=== PATIENT | female | born 1960 ===

== ENCOUNTER 2019-12-19 14:29 | Inpatient (IN) | payer OTHER ==
[2019-12-19] VITALS (9 sets, daily range): BP systolic 80–132; BP diastolic 56–69; Ht 172.7 cm; Wt 57.5 kg
[~2019-12-19] VITALS: Ht 172.7 cm; Wt 57.5 kg
--- NOTE | 2019-12-19 14:55 | NUR ---
IV 20 GA LEFT AC
[2019-12-19 17:35] LABS: BASOPHILS 0.1 % (0-2); EOSINOPHILS 1.2 % (0-7); HEMATOCRIT 41.4 % (36.0-48.0); HEMOGLOBIN 13.7 g/dL (12-16); IMMATURE GRANULOCYTES 0.1 % (0-5); LYMPHOCYTES 19.4 % (15-50); MCH 29.7 pg (26.0-34.0); MCHC 33.1 g/dL (31.0-37.0); MCV 89.8 fL (80.0-100.0); MEAN PLATELET VOLUME 11.6 fL (7.4-10.4); MONOCYTES 6.8 % (2-11); NEUTROPHILS 72.4 % (40-80); PLATELET COUNT 253 10x3/uL (130-400); RBC 4.61 10x6/uL (4.00-5.40); RDW 13.2 % (11.5-14.5); WBC 8.2 10x3/uL (4.8-10.8)
--- NOTE | 2019-12-19 17:37 | NUR ---
16 FR CANTU CATH PLACED. YELLOW URINE RETURN IN TUBING AND BAG. PT TOLERATED WELL.
--- NOTE | 2019-12-19 17:38 | NUR ---
CALLED PHARMACY FOR ANCEF ORDER
[2019-12-19 17:42] LABS: ANION GAP 10.9 mmol/L (8-16); CALCIUM 8.6 mg/dL (8.5-10.1); CARBON DIOXIDE 25.9 mmol/L (21.0-32.0); CREATININE - SERUM 0.9 mg/dL (0.6-1.3); POTASSIUM - SERUM 3.8 mmol/L (3.5-5.1)
[2019-12-19 17:47] LABS: APTT 26.3 SECONDS (22.8-39.4); INR 0.98 (0.85-1.17)
[2019-12-19 17:48] LABS: ALBUMIN 3.8 g/dL (3.4-5.0); BILIRUBIN - TOTAL 0.32 mg/dL (0.2-1.3); PROTEIN - SERUM 7.1 g/dL (6.4-8.2)
[2019-12-19 18:02] LABS: BILIRUBIN NEGATIVE (NEGATIVE); KETONE NEGATIVE (NEGATIVE); NITRITE NEGATIVE (NEGATIVE); UROBILINOGEN NORMAL mg/dL (< 2)
--- NOTE | 2019-12-19 18:42 | NUR ---
ANCEF UNAVAILABLE PT WENT TO SURGERY
[2019-12-19] MEDS ORDERED: PROZAC40 MG PO (21:16)
[2019-12-19] MEDS ORDERED: VALIUM5 MG PO (21:17)
[2019-12-19] MEDS ORDERED: TOPAMAX50 MG PO (21:18)
[2019-12-19] MEDS ORDERED: PEPCID AC20 MG PO (21:19)
[2019-12-20] VITALS (12 sets, daily range): BP systolic 82–102; BP diastolic 37–69
--- NOTE | 2019-12-20 06:45 | NUR ---
REMOVED CANTU. TIP INTACT.
--- NOTE | 2019-12-20 07:09 | NUR ---
RECEIVED BEDSIDE REPORT. PT LAYING IN BED A&O X4. PIV TO LEFT AC, PATENT AND INFUSING, NO REDNESS OR SWELLING. SCD ON RLE, PLEXI ON L FOOT. ISP AT BEDSIDE. DRSG TO LEFT HIP, C/D/I. EDUCATED PT ON CL AND NEEDS, VERBALIZED UNDERSTANDING. BED LOW, ALARM ON, CL IN REACH. WILL CONTINUE TO MONITOR.
[2019-12-20 07:28] LABS: MCH 28.8 pg (26.0-34.0); MCHC 31.9 g/dL (31.0-37.0); MCV 90.1 fL (80.0-100.0); MEAN PLATELET VOLUME 11.7 fL (7.4-10.4); RDW 13.2 % (11.5-14.5); WBC 7.2 10x3/uL (4.8-10.8)
--- NOTE | 2019-12-20 07:40 | OP ---
PATIENT NAME: KAYODE GUTIERREZ MEDICAL RECORD: [id number] :58 LOCATION:D. D.1211 ADMISSION DATE:12/19/19 SURGEON: JOHN ZAPIEN DO DATE OF OPERATION: 12/19/2019 PROCEDURE PERFORMED: Left total hip arthroplasty. PREOPERATIVE DIAGNOSIS: Left hip femoral neck fracture, displaced. POSTOPERATIVE DIAGNOSIS: Left hip femoral neck fracture, displaced. INDICATIONS: Ms. Gutierrez is a 59-year-old female who fell today onto her left hip while helping her daughter move. She had immediate pain, but did not think it was that bad. She was brought to the ER for x-rays and seen to have a displaced femoral neck fracture. Informed her of the options including percutaneous pinning, the high likelihood that neck would due to displacement and that we needed to do a total hip and be done and she could get up and walk right away. She would like that option better. She was aware of the risks including infection, bleeding, damage to the femoral nerve, the lateral thigh cutaneous nerve, further fracture of the femur, failure of implants, leg length discrepancy, blood clots, and even , and she signed the consent. SURGEON: John Zapien DO DESCRIPTION OF PROCEDURE: The patient was taken to the operative suite, laid in supine position, given general anesthetic, given a gram of TXA and a gram of Ancef preoperatively. She was sedated and intubated. She was then moved over to the [place] table and positioned. The left hip was then prepped and draped in sterile fashion. Timeout was performed. Everyone was in agreement with the correct site, side, patient, and procedure. I then began by making an incision over the tensor fasciae latae muscle, then careful dissection down to the fascia. Took the fascia anteriorly, muscle belly posteriorly, opened the rectus interval, the rectus medially, tensor fasciae latae laterally, opened up the space there and encountered the ascending branch of lateral femoral circumflex artery and tied it off and then coagulated with the Aquamantys and then cut it. I then opened the capsule, exposed the capsule, put Hohmann on either side, I then opened it up and tagged the capsule stitch, put the Hohmann around the neck of the femur and cut. I then removed the fracture site of the femoral neck and then the femoral head in 2 separate pieces due to the fracture being comminuted. I then put the Charnley and removed the labrum and the pulvinar and began reaming, reamed up to a 50, impacted in a 50 cup. It fit very well and checked it with a Cristian and it was well seated. I then impacted in the liner. I then exposed the femur and used a canal finder and Carlotz cutter and then broached up to an 11, I reduced that and needed to go to a 12 and also a longer neck, then put in a 12, +3 seemed to fit well and had equal lengths to the right on the x-ray. I then put in the 12 stem and same +3 neck on a dual mobility bearing and it appeared to be long on x-ray. Then removed that and put in a standard and impacted on and reduced and it was equal lengths to the right side of the lesser trochanters. I then irrigated thoroughly. She could not have the Betadine solution due to her BETADINE ALLERGY. Irrigated thoroughly with saline and put in Louie and vancomycin and tobramycin powder. I then closed the tensor fasciae latae fascia with #1 Vicryl in a [id number] in a running locking stitch and the skin with 2-0 Vicryl in inverted interrupted fashion, 4-0 Monocryl running on the skin and then Prineo glue placed on the skin. She was OPERATIVE REPORT [id number] KAYODE GUTIERREZ dressed with Telfa and Tegaderm. Given another gram of TXA. Awakened and taken to recovery in stable condition. Blood loss approximately 300 mL. COMPLICATIONS: None. TRANSINT:[id number] Voice Confirmation ID: [id number] DOCUMENT ID: [id number] JOHN ZAPIEN DO at 0740 CC: [id number] DICTATION DATE: 12/19/192023 GIS SCIENTIST: 12/20/19 0317 [facility] IN [facility] [address] [id number]
[2019-12-20 07:42] LABS: HEMOGLOBIN 9.9 g/dL (12-16); RBC 3.44 10x6/uL (4.00-5.40)
--- NOTE | 2019-12-20 09:44 | NUR ---
PT C/O PAIN 11/15, PROVIDED PAIN MEDS PER ORDER. PT TOLERATED WELL. BED LOW, CL IN REACH.
--- NOTE | 2019-12-20 12:30 | NUR ---
ASSISTED PT FROM CHAIR BACK TO BED, PT C/O BEING TO TIRED TO BE IN CHAIR. BED LOW, CL IN REACH.
--- NOTE | 2019-12-20 17:15 | NUR ---
PT C/O PAIN 11/15, PROVIDED MEDS PER ORDER. PT TOLERATED WELL. BED LOW, CL IN REACH.
--- NOTE | 2019-12-20 17:52 | NUR ---
ASSITED PT TO BR, VOIDED 350ML CLR YELLOW URINE, TOLERATED WELL. BED LOW, RAILS X2, CL IN REACH.
--- NOTE | 2019-12-20 18:09 | MORECARE ---
CASE MANAGEMENT DISCHARGE SUMMARY PATIENT: KAYODE MORALES UNIT: [id number] ADM DATE: 12/19/19 AGE: 59 : 58 SEX: F ROOM/BED: D.1211 AUTHOR: ERIKA PRUITT PHYSICIAN: REFERRING PHYSICIAN: YSABEL SONG MD DATE OF SERVICE: 12/20/19 Discharge Plan Patient Name: KAYODE MORALES Facility: [facility]:[place] : 1960 Planned Disposition: Outpatient PT\OT Anticipated Discharge Date: 12/22/19 Discharge Date: Expected LOS: 3 Initial Reviewer: [email or web address] Initial Review Date: 12/19/2019 Generated: 12/20/19 7:08 pm Comments DCP- Discharge Planning Updated by [email or web address]: Elizabeth Siu on 12/20/19 4:[address] CM will need to set up OP Therapy with [facility], in [place] upon DC and also a walker will be needed prior to DC. CM met with patient for DC planning. Patient is in agreement to same. Patient lives with her daughter, Kerrie Kaminski ([phone]), in her home, in [place]. There are two steps entering the home. PCP: Dr. Bianca Browne [place]. Pharmacy: [facility]. DME: None. CM discussed HHS, OP Therapy, SNF, Rehab. Patient states she will go to [facility] in [place], she has been a client of theirs in the past. Patient's daughter will drive her home upon DC. Patient voices no other needs at this time. CM will follow and assist PRN. Patient Name: KAYODE MORALES Page 33336 at 1809 All edits/amendments must be made on the electronic document DICTATION DATE: 12/20/191808 BELT MEASURER: STACIA 12/20/191808 RPT#: [id number] DC DATE: STATUS: ADM IN [facility] [address] [place] [address] END OF REPORT
--- NOTE | 2019-12-20 18:16 | MORECARE ---
CASE MANAGEMENT DISCHARGE SUMMARY PATIENT: KAYODE MORALES UNIT: [id number] ADM DATE: 12/19/19 AGE: 59 : 58 SEX: F ROOM/BED: D.1211 AUTHOR: SONAL,DOC PHYSICIAN: REFERRING PHYSICIAN: YSABEL SONG MD DATE OF SERVICE: 12/20/19 Discharge Plan Patient Name: KAYODE MORALES Facility: [facility]:[place] : 1960 Planned Disposition: Outpatient PT\OT Anticipated Discharge Date: 12/22/19 Discharge Date: Expected LOS: 3 Initial Reviewer: [email or web address] Initial Review Date: 12/19/2019 Generated: 12/20/19 7:15 pm Comments DCP- Discharge Planning Updated by [email or web address]: Elizabeth Siu on 12/20/19 4:[address] CM will need to set up OP Therapy with [facility], in [place] upon DC and also a walker will be needed prior to DC. CM met with patient for DC planning. Patient is in agreement to same. Patient lives with her daughter, Kerrie Kaminski ([phone]), in her home, in [place]. There are two steps entering the home. PCP: Agustina Emmanuel. Pharmacy: [facility]. DME: None. CM discussed HHS, OP Therapy, SNF, Rehab. Patient states she will go to [facility] in [place], she has been a client of theirs in the past. Patient's daughter will drive her home upon DC. Patient voices no other needs at this time. CM will follow and assist PRN. DCPIA - Discharge Planning Initial Assessment Updated by [email or web address]: Elizabeth Siu on 12/20/19 6:11 pm * Is the patient Alert and Oriented? Yes * How many steps to enter\exit or inside your home? * PCP Kvng Emmanuel * Pharmacy [facility] * Preadmission Environment Home with Family * ADLs Independent * Equipment None * Other Equipment Will require a walker prior to DC. * List name and contact numbers for known caregivers / representatives who currently or will assist patient after discharge: Kerrie Kaminski (d-I-l) [phone] * Verbal permission to speak to the caregivers and representatives has been obtained from the patient. Yes * Community resources currently utilized None * Please name any agencies selected above. [facility] ([facility]) * Additional services required to return to the preadmission environment? Yes * Can the patient safely return to the preadmission environment? Yes * Has this patient been hospitalized within the prior 30 days at any hospital? No Last DP export: 12/20/19 5:09 Patient Name: KAYODE MORALES Page [phone] at 1816 All edits/amendments must be made on the electronic document DICTATION DATE: 12/20/191814 ROUTE INSPECTOR: STACIA 12/20/191814 RPT#: [id number] DC DATE: STATUS: ADM IN [facility] [address] [place] [address] END OF REPORT
--- NOTE | 2019-12-20 20:00 | NUR ---
ALERT RESTING IN BED, REPORTS SOME PAIN TO LEFT HIP, REQUESTIGN PAIN MEDS, BP LOW AT 87/37 INSTRUCTED WILL RECHECK NEEDS TO BE HIGHER TO GIVE PAIN MEDS, MANUAL BP CHECKED 84/56, IV FLUIDS INFUSING AT 200 PER PREVIOUS SHIFT, DENIES DIZZINESS, TACHARCARDIA OR LIGHT HEADNESSESS, HAS BEEN GETTING UP WITH WALKER TO BATHROOM, SEE ASSESSMENT, CALL LIGHT IN REACH
--- NOTE | 2019-12-20 20:30 | NUR ---
CALL TO [facility], INFORMED OF LOW BP SINCE SURGERY, WANTING PAIN MEDS BUT AGREES BP TOO LOW, ORDERS RECIEVED TO DECREASE IV FLUIDS TO 75 AND MONITOR BP LONG ASYMPTOMATIC, WILL CONTINUE TO MONITOR
--- NOTE | 2019-12-20 23:00 | NUR ---
BP 102/56 AT THIS TIME TORDOL GIVEN ORDERED , WILL CONTINUE TO MONITOE
[2019-12-21] VITALS (7 sets, daily range): BP systolic 87–120; BP diastolic 44–67
[2019-12-21 07:07] LABS: BASOPHILS 0 % (0-2); EOSINOPHILS 0.9 % (0-7); IMMATURE GRANULOCYTES 0.2 % (0-5); LYMPHOCYTES 21.3 % (15-50); MCH 29.1 pg (26.0-34.0); MCHC 32.7 g/dL (31.0-37.0); MCV 89.1 fL (80.0-100.0); MEAN PLATELET VOLUME 11.2 fL (7.4-10.4); MONOCYTES 11.6 % (2-11); PLATELET COUNT 176 10x3/uL (130-400); RDW 13.1 % (11.5-14.5); WBC 5.7 10x3/uL (4.8-10.8)
[2019-12-21 07:09] LABS: HEMATOCRIT 24.5 % (36.0-48.0); RBC 2.75 10x6/uL (4.00-5.40)
--- NOTE | 2019-12-21 07:15 | NUR ---
RECEIVED BEDSIDE REPORT. PT SITTING UP IN BED, A&O X4. PIV TO LEFT AC, PATENT AND INFUSING, NO REDNESS OR SWELLING. DRSG TO LEFT HIP C/D/I. ISP AT BEDSIDE. PT ABLE TO AMBULATE WITH WALKER AND MIN ASSISTANCE. EDUCATED PT ON CL AND NEEDS, VERBALIZED UNDERSTANDING. BED LOW, CL IN REACH.
[2019-12-21 07:30] LABS: ANION GAP 10.2 mmol/L (8-16); CALCIUM 7.3 mg/dL (8.5-10.1); CARBON DIOXIDE 22.3 mmol/L (21.0-32.0); CREATININE - SERUM 0.9 mg/dL (0.6-1.3); MAGNESIUM - SERUM 1.9 mg/dL (1.8-2.4); PHOSPHOROUS 2.6 mg/dL (2.5-4.9); POTASSIUM - SERUM 3.5 mmol/L (3.5-5.1)
--- NOTE | 2019-12-21 08:00 | NUR ---
PT C/O PAIN 10/15, PROVIDED MEDS PER ORDER, TOLERATED WELL. BED LOW, CL IN REACH.
--- NOTE | 2019-12-21 13:00 | NUR ---
ASSISTED PT WITH BED BATH, FULL LININ AND GOWN CHANGE, TOLERATED WELL. BED LOW, CL IN REACH.
--- NOTE | 2019-12-21 13:27 | NUR ---
PT C/O PAIN 11/15, PROVIDED PAIN MEDS PER ORDER, PT TOLERATED WELL. BED LOW, CL IN REACH.
--- NOTE | 2019-12-21 17:20 | NUR ---
PT C/O PAIN 10/15, PROVIDED MEDS PER ORDER, TOLERATED WELL. BED LOW, CL IN REACH.
[2019-12-22] VITALS (7 sets, daily range): BP systolic 88–110; BP diastolic 49–67
--- NOTE | 2019-12-22 07:43 | NUR ---
PT AWAKE LAYING ON BACK. NO NEEDS AT THIS TIME. CL IN REACH. WCTM
[2019-12-22 07:53] LABS: CALCIUM 7.8 mg/dL (8.5-10.1); CARBON DIOXIDE 23.8 mmol/L (21.0-32.0); CHLORIDE - SERUM 109 mmol/L (98-107); GLUCOSE 110 mg/dL (74-106); PHOSPHOROUS 2.7 mg/dL (2.5-4.9); POTASSIUM - SERUM 3.4 mmol/L (3.5-5.1); SODIUM 140 mmol/L (136-145)
[2019-12-22 07:57] LABS: CALC OSMOLALITY 277 mosm/kg (275-300); CREATININE - SERUM 0.6 mg/dL (0.6-1.3); UREA NITROGEN 8 mg/dL (7-18); eGFR NON AFRICAN AMERICAN > 90 mL/min (90-120)
[2019-12-22 08:10] LABS: BASOPHILS 0 % (0-2); EOSINOPHILS 1.4 % (0-7); HEMATOCRIT 23.5 % (36.0-48.0); HEMOGLOBIN 7.6 g/dL (12-16); IMMATURE GRANULOCYTES 0.2 % (0-5); LYMPHOCYTES 21.9 % (15-50); MCH 28.8 pg (26.0-34.0); MCHC 32.3 g/dL (31.0-37.0); MEAN PLATELET VOLUME 11.4 fL (7.4-10.4); MONOCYTES 11.5 % (2-11); PLATELET COUNT 167 10x3/uL (130-400); RBC 2.64 10x6/uL (4.00-5.40); RDW 13.1 % (11.5-14.5); WBC 4.9 10x3/uL (4.8-10.8)
--- NOTE | 2019-12-22 12:21 | NUR ---
PT ASSISTED TO BATHROOM. PT GOT DRESSED WITH NO ASSISTANCE. RESOLUTION OF MIGRAINE AND NAUSEA. CL IN REACH. WCTM
--- NOTE | 2019-12-22 15:04 | MORECARE ---
CASE MANAGEMENT DISCHARGE SUMMARY PATIENT: KAYODE MORALES UNIT: [id number] ADM DATE: 12/19/19 AGE: 59 : 58 SEX: F ROOM/BED: D.1211 AUTHOR: SONALDOC PHYSICIAN: REFERRING PHYSICIAN: YSABEL SOGN MD DATE OF SERVICE: 12/22/19 Discharge Plan Patient Name: KAYODE MORALES Facility: [facility]:[place] : 1960 Planned Disposition: Outpatient PT\OT Anticipated Discharge Date: 12/22/19 Discharge Date: Expected LOS: 3 Initial Reviewer: [email or web address] Initial Review Date: 12/19/2019 Generated: 12/22/19 4:04 pm Comments DCP- Discharge Planning Updated by [email or web address]: Tia Kapadia on 12/22/19 2:[address] Patient Name: KAYODE MORALES Admission Status: ER Accout number: [id number] Admission Date: 12-19-2019 : 1960 Admission Diagnosis:FRACTURE OF UNSP PART OF NECK OF LEFT FEMUR, INIT Attending: YSABEL SONG Current LOS: 3 Anticipated DC Date: 12-22-2019 Planned Disposition: Outpatient PT\OT Primary Insurance: [employer] INS EXCHANGE Discharge Planning Comments: ORTHO ORDER FOR OUTPATIENT PT PLACED ON CHART AND SCANNED IN. CM TO FOLLOW AND ASSIST NEEDED. Trick Rodeo Rider: Tia Kapadia DCP- Discharge Planning Updated by [email or web address]: Elizabeth Siu on 12/20/19 4:[address] CM will need to set up OP Therapy with [facility], in [place] upon DC and also a walker will be needed prior to DC. CM met with patient for DC planning. Patient is in agreement to same. Patient lives with her daughter, Kerrie Kaminski ([phone]), in her home, in [place]. There are two steps entering the home. PCP: Agustina Emmanuel. Pharmacy: [facility]. DME: None. CM discussed HHS, OP Therapy, SNF, Rehab. Patient states she will go to [facility] in [place], she has been a client of theirs in the past. Patient's daughter will drive her home upon DC. Patient voices no other needs at this time. CM will follow and assist PRN. DCPIA - Discharge Planning Initial Assessment Updated by [email or web address]: Elizabeth Siu on 12/20/19 6:11 pm * Is the patient Alert and Oriented? Yes * How many steps to enter\exit or inside your home? * PCP Kvng Emmanuel * Pharmacy [facility] * Preadmission Environment Home with Family * ADLs Independent * Equipment None * Other Equipment Will require a walker prior to DC. * List name and contact numbers for known caregivers / representatives who currently or will assist patient after discharge: Kerrie Maddenton (d-I-l) [phone] * Verbal permission to speak to the caregivers and representatives has been obtained from the patient. Yes * Community resources currently utilized None * Please name any agencies selected above. [facility] (OP) * Additional services required to return to the preadmission environment? Yes * Can the patient safely return to the preadmission environment? Yes * Has this patient been hospitalized within the prior 30 days at any hospital? No Coverage Notice Reviewer: [id number] - Elizabeth Siu Notice Issued Date-Time: 12/20/2019 18:46 Notice Type: Patient Choice Letter Notice Delivered To: Patient Relationship to Patient: Self Bankruptcy Assistant Name: Kayode Morales Delivery Method: HAND - Hand Delivered Izzy Days: Prior Verbal Notification: Recipient Understood Notice: Yes Recipient Signature: Yes Med Rec Note Co-signed by Attending: Coverage Notice Comment: [facility] Last DP export: 12/20/19 5:16 Patient Name: KAYODE MORALES Page [phone] at 1504 All edits/amendments must be made on the electronic document DICTATION DATE: 12/22/19 1504 BUTCHER HELPER: STACIA 12/22/19 1506 RPT#: [id number] DC DATE: STATUS: ADM IN [facility] [address] [place] [address] END OF REPORT
--- NOTE | 2019-12-22 15:17 | NUR ---
PT STATES THAT IT WAS THE GRANDDAUGHTERS MOM THAT VISITED HER. WANTING PT TO SIGN SOME PAPERWORK RETURNING HER GRANDDAUGHTER TO HER CARE. PT STATES THAT SHE WAS IN THE PROCESS OF DOING THIS ANYWAY. TOLD HER THAT IT WAS UNWISE TO MAKE IMPORTANT DECISIONS WHILE UNDER MEDICATIONS. PT ALSO ASKED ABOUT DISCHARGE. STATING THAT IF ZOEY HAD TO DRIVE BACK OUT HERE IT WOULD BE AWHILE SINCE SHE WOULD BE COMING FROM [place]. I STATED THAT I WAS UNSURE YET WHETHER OR NOT THAT SHE WOULD BE LEAVING TODAY. THAT THE DOCTORS WERE GOING TO GET TOGETHER. CL IN REACH. PT STATES THAT SHE IS GOING BACK TO SLEEP FOR A LITTLE WHILE THEN. WCTM
[2019-12-23 04:30] VITALS: BP 108/58
[2019-12-23 07:07] LABS: BASOPHILS 0.2 % (0-2); EOSINOPHILS 2.5 % (0-7); HEMATOCRIT 22.9 % (36.0-48.0); IMMATURE GRANULOCYTES 0.4 % (0-5); LYMPHOCYTES 34.2 % (15-50); MCH 28.9 pg (26.0-34.0); MCHC 32.3 g/dL (31.0-37.0); MCV 89.5 fL (80.0-100.0); MEAN PLATELET VOLUME 11.2 fL (7.4-10.4); MONOCYTES 9.2 % (2-11); NEUTROPHILS 53.5 % (40-80); RBC 2.56 10x6/uL (4.00-5.40); RDW 13.2 % (11.5-14.5); WBC 5.3 10x3/uL (4.8-10.8)
[2019-12-23 07:08] LABS: CALC OSMOLALITY 283 mosm/kg (275-300); CALCIUM 7.6 mg/dL (8.5-10.1); CARBON DIOXIDE 24.9 mmol/L (21.0-32.0); CHLORIDE - SERUM 110 mmol/L (98-107); CREATININE - SERUM 0.7 mg/dL (0.6-1.3); GLUCOSE 115 mg/dL (74-106); MAGNESIUM - SERUM 1.9 mg/dL (1.8-2.4); PHOSPHOROUS 2.7 mg/dL (2.5-4.9); SODIUM 143 mmol/L (136-145); UREA NITROGEN 8 mg/dL (7-18); eGFR NON AFRICAN AMERICAN 90 mL/min (90-120)
[2019-12-23 08:00] VITALS: BP 88/48
[2019-12-23 08:33] LABS: HEMOGLOBIN 7.4 g/dL (12-16); PLATELET COUNT 206 10x3/uL (130-400)
--- NOTE | 2019-12-23 08:46 | NUR ---
REPORTED LOW H&H TO BRONSON WHO REFERED THIS TO DR CURRY DR IN SURGERY AT PRESENT
[2019-12-23 12:00] VITALS: BP 106/70
[2019-12-23 16:00] VITALS: BP 108/65
--- NOTE | 2019-12-23 16:35 | NUR ---
2ND UNIT OF BLOOD INFUSING, WINSTON WELL
--- NOTE | 2019-12-23 19:10 | NUR ---
RESTING IN BED SLEEPING, 2 UNITS OF BLOOD GIVEN TODAY, PT STATES THAT SHE FEELS BETTER
--- NOTE | 2019-12-23 19:46 | NUR ---
PATIENT RESTING IN BED WITH NO S/S OF DISTRESS AND DENIES NEEDS AT THIS TIME. BED IN LOWEST POSITION AND CALL LIGHT WITHIN REACH. ENCOURAGED THE PATIENT TO CALL IF SHE HAS NEEDS. WILL CONTINUE TO MONITOR.
[2019-12-23 20:00] VITALS: BP 127/79
--- NOTE | 2019-12-23 21:28 | NUR ---
ADMINISTERED MEDS PER ORDERS. PATIENT DENIES NEEDS. WILL CONTINUE TO MONITOR.
[2019-12-24] VITALS: BP 109/63
[2019-12-24 04:00] VITALS: BP 108/68
--- NOTE | 2019-12-24 07:49 | NUR ---
RESTING IN BED, NO DISTRESS NOTED, DENIES PAIN, SL IN PLACE, CONT TO MONITOR
[2019-12-24 08:19] LABS: BASOPHILS 0.2 % (0-2); EOSINOPHILS 3.7 % (0-7); IMMATURE GRANULOCYTES 0.2 % (0-5); LYMPHOCYTES 28.3 % (15-50); MCH 28.5 pg (26.0-34.0); MCHC 32.9 g/dL (31.0-37.0); MEAN PLATELET VOLUME 10.9 fL (7.4-10.4); MONOCYTES 11.5 % (2-11); NEUTROPHILS 56.1 % (40-80); PLATELET COUNT 227 10x3/uL (130-400); RDW 14.4 % (11.5-14.5); WBC 5.5 10x3/uL (4.8-10.8)
[2019-12-24 08:23] LABS: HEMOGLOBIN 10.2 g/dL (12-16); MCV 86.6 fL (80.0-100.0); RBC 3.58 10x6/uL (4.00-5.40)
[2019-12-24 09:09] LABS: CALCIUM 7.8 mg/dL (8.5-10.1); CARBON DIOXIDE 25.3 mmol/L (21.0-32.0); CHLORIDE - SERUM 110 mmol/L (98-107); CREATININE - SERUM 0.7 mg/dL (0.6-1.3); FERRITIN 93 ng/mL (3-244); GLUCOSE 104 mg/dL (74-106); POTASSIUM - SERUM 3.9 mmol/L (3.5-5.1); SODIUM 144 mmol/L (136-145); eGFR NON AFRICAN AMERICAN 90 mL/min (90-120)
[2019-12-24 09:12] LABS: CALC OSMOLALITY 283 mosm/kg (275-300); PHOSPHOROUS 3.5 mg/dL (2.5-4.9); UREA NITROGEN 5 mg/dL (7-18)
[2019-12-24 09:17] LABS: % SATURATION 11 % (15-55); IRON 22 ug/dl (35-150); TOTAL IRON BIND CAPACITY 195 ug/dl (260-445); UNSAT IRON BIND CAPACITY 173 ug/dl (150-375)
[2019-12-24 09:30] VITALS: BP 97/66
[2019-12-24] MEDS ORDERED: ELIQUIS2.5 MG PO (10:12)
[2019-12-24] MEDS ORDERED: VISTARIL50 MG PO (10:13)
[2019-12-24] MEDS ORDERED: oxyCODONE IR PO (10:13)
[2019-12-24] MEDS ORDERED: KEFLEX500 MG PO (10:13)
--- NOTE | 2019-12-24 13:00 | NUR ---
DC IV, TIP INTACT, TAKEN FROM HOSPITAL PER WC, RX IN HAND
--- NOTE | 2019-12-24 19:33 | MORECARE ---
CASE MANAGEMENT DISCHARGE SUMMARY PATIENT: KAYODE GUTIERREZ UNIT: [id number] ADM DATE: 12/19/19 AGE: 59 : 58 SEX: F ROOM/BED: D.2237 AUTHOR: SONAL,DOC PHYSICIAN: REFERRING PHYSICIAN: YSABEL SONG MD DATE OF SERVICE: 12/24/19 Discharge Plan Patient Name: KAYODE GUTIERREZ Facility: [facility]:[place] : 1960 Planned Disposition: Outpatient PT\OT Anticipated Discharge Date: 12/22/19 Discharge Date: 12/24/2019 Expected LOS: 3 Initial Reviewer: [email or web address] Initial Review Date: 12/19/2019 Generated: 12/24/19 8:32 pm Comments DCP- Discharge Planning Updated by [email or web address]: Tia Kapadia on 12/22/19 2:[address] Patient Name: KAYODE GUTIERREZ Admission Status: ER Accout number: [id number] Admission Date: 12-19-2019 : 1960 Admission Diagnosis:FRACTURE OF UNSP PART OF NECK OF LEFT FEMUR, INIT Attending: YSABEL SONG Current LOS: 3 Anticipated DC Date: 12-22-2019 Planned Disposition: Outpatient PT\OT Primary Insurance: [employer] INS EXCHANGE Discharge Planning Comments: ORTHO ORDER FOR OUTPATIENT PT PLACED ON CHART AND SCANNED IN. CM TO FOLLOW AND ASSIST NEEDED. Upholstery Instructor: Tia Kapadia DCP- Discharge Planning Updated by [email or web address]: Elizabeth Siu on 12/20/19 4:[address] CM will need to set up OP Therapy with [facility], in [place] upon DC and also a walker will be needed prior to DC. CM met with patient for DC planning. Patient is in agreement to same. Patient lives with her daughter, Kerrie Kaminski ([phone]), in her home, in [place]. There are two steps entering the home. PCP: Dr. Bianca Browne, [place]. Pharmacy: [facility]. DME: None. CM discussed HHS, OP Therapy, SNF, Rehab. Patient states she will go to [facility] in [place], she has been a client of theirs in the past. Patient's daughter will drive her home upon DC. Patient voices no other needs at this time. CM will follow and assist PRN. DCPIA - Discharge Planning Initial Assessment Updated by [email or web address]: Elizabeth Siu on 12/20/19 6:11 pm * Is the patient Alert and Oriented? Yes * How many steps to enter\exit or inside your home? * PCP Kvng Emmanuel * Pharmacy [facility] * Preadmission Environment Home with Family * ADLs Independent * Equipment None * Other Equipment Will require a walker prior to DC. * List name and contact numbers for known caregivers / representatives who currently or will assist patient after discharge: Kerrie Kaminski (d-I-l) [phone] * Verbal permission to speak to the caregivers and representatives has been obtained from the patient. Yes * Community resources currently utilized None * Please name any agencies selected above. [facility] ([facility]) * Additional services required to return to the preadmission environment? Yes * Can the patient safely return to the preadmission environment? Yes * Has this patient been hospitalized within the prior 30 days at any hospital? No Coverage Notice Reviewer: [id number] - Elizabeth Siu Notice Issued Date-Time: 12/20/2019 18:46 Notice Type: Patient Choice Letter Notice Delivered To: Patient Relationship to Patient: Self Data Management Associate Name: Kayode Gutierrez Delivery Method: HAND - Hand Delivered Izzy Days: Prior Verbal Notification: Recipient Understood Notice: Yes Recipient Signature: Yes Med Rec Note Co-signed by Attending: Coverage Notice Comment: [facility] Last DP export: 12/22/19 2:04 Patient Name: KAYODE GUTIERREZ Page 98511 at 1933 All edits/amendments must be made on the electronic document DICTATION DATE: 12/24/191931 ERP ANALYST: STACIA 12/24/191931 RPT#: [id number] DC DATE:12/24/19 STATUS: DIS IN [facility] [address] [place] [address] END OF REPORT
--- NOTE | 2019-12-24 19:40 | MORECARE ---
CASE MANAGEMENT DISCHARGE SUMMARY PATIENT: KAYODE MORALES UNIT: [id number] ADM DATE: 12/19/19 AGE: 59 : 58 SEX: F ROOM/BED: D.2237 AUTHOR: SONALDOC PHYSICIAN: REFERRING PHYSICIAN: YSABEL SONG MD DATE OF SERVICE: 12/24/19 Discharge Plan Patient Name: KAYODE MORALES Facility: [facility]:[place] : 1960 Planned Disposition: Outpatient PT\OT Anticipated Discharge Date: 12/22/19 Discharge Date: 12/24/2019 Expected LOS: 3 Initial Reviewer: [email or web address] Initial Review Date: 12/19/2019 Generated: 12/24/19 8:39 pm Comments DCP- Discharge Planning Updated by [email or web address]: Jr Monteiro on 12/24/19 6:[address] Patient Name: KAYODE MORALES Encounter No: [id number] : 1960 Primary Insurance: [employer] INS EXCHANGE Anticipated DC Date: 12-22-2019 Planned Disposition: Outpatient PT\OT External Planned Provider: : DCP follow-up note: CM discussed HHS, OP Therapy, SNF, Rehab. Patient declined PT and DME. Patient voices no other needs at this time. CM will follow and assist PRN. Jr Monteiro DCP- Discharge Planning Updated by [email or web address]: Tia Kapadia on 12/22/19 2:[address] Patient Name: KAYODE MORALES Admission Status: ER Accout number: [id number] Admission Date: 12-19-2019 : 1960 Admission Diagnosis:FRACTURE OF UNSP PART OF NECK OF LEFT FEMUR, INIT Attending: YSABEL SONG Current LOS: 3 Anticipated DC Date: 12-22-2019 Planned Disposition: Outpatient PT\OT Primary Insurance: [employer] INS EXCHANGE Discharge Planning Comments: [facility]TH[facility] ORDER FOR OUTPATIENT PT PLACED ON CHART AND SCANNED IN. CM TO FOLLOW AND ASSIST NEEDED. Stove Bottom Worker: Tia Kapadia DCP- Discharge Planning Updated by [email or web address]: Elizabeth Siu on 12/20/19 4:[address] CM will need to set up OP Therapy with [facility], in [place] upon DC and also a walker will be needed prior to DC. CM met with patient for DC planning. Patient is in agreement to same. Patient lives with her daughter, Kerrie Kaminski ([phone]), in her home, in [place]. There are two steps entering the home. PCP: Agustina Emmanuel. Pharmacy: [facility]. DME: None. CM discussed HHS, OP Therapy, SNF, Rehab. [facility] [place], she has been a client of theirs in the past. Patient's daughter will drive her home upon DC. Patient voices no other needs at this time. CM will follow and assist PRN. DCPIA - Discharge Planning Initial Assessment Updated by [email or web address]: Elizabeth Siu on 12/20/19 6:11 pm * Is the patient Alert and Oriented? Yes * How many steps to enter\exit or inside your home? * PCP Kvng Emmanuel * Pharmacy [facility] * Preadmission Environment Home with Family * ADLs Independent * Equipment None * Other Equipment Will require a walker prior to DC. * List name and contact numbers for known caregivers / representatives who currently or will assist patient after discharge: Kerrie Kaminski (d-I-l) [phone] * Verbal permission to speak to the caregivers and representatives has been obtained from the patient. Yes * Community resources currently utilized None * Please name any agencies selected above. [facility] (OP) * Additional services required to return to the preadmission environment? Yes * Can the patient safely return to the preadmission environment? Yes * Has this patient been hospitalized within the prior 30 days at any hospital? No Coverage Notice Reviewer: [id number] - Elizabeth Siu Notice Issued Date-Time: 12/20/2019 18:46 Notice Type: Patient Choice Letter Notice Delivered To: Patient Relationship to Patient: Self Special Needs Librarian Name: Kayode Morales Delivery Method: HAND - Hand Delivered Izzy Days: Prior Verbal Notification: Recipient Understood Notice: Yes Recipient Signature: Yes Med Rec Note Co-signed by Attending: Coverage Notice Comment: Leilani Ledesma [place] Last DP export: 12/24/19 6:33 Patient Name: KEVIN MORALESNA Page [id number] at 1940 All edits/amendments must be made on the electronic document DICTATION DATE: 12/24/191938 LICENSING OFFICER: STACIA 12/24/191938 RPT#: [id number] DC DATE:12/24/19 STATUS: DIS [facility] [address] [address] END OF REPORT
--- NOTE | 2019-12-25 09:07 | MORECARE ---
CASE MANAGEMENT DISCHARGE SUMMARY PATIENT: KAYODE MORALES UNIT: [id number] ADM DATE: 12/19/19 AGE: 59 : 58 SEX: F ROOM/BED: D.2237 AUTHOR: SONALDOC PHYSICIAN: REFERRING PHYSICIAN: YSABEL SONG MD DATE OF SERVICE: 12/25/19 Discharge Plan Patient Name: KAYODE MORALES Facility: [facility]:[place] : 1960 Planned Disposition: Outpatient PT\OT Anticipated Discharge Date: 12/22/19 Discharge Date: 12/24/2019 Expected LOS: 3 Initial Reviewer: [email or web address] Initial Review Date: 12/19/2019 Generated: 12/25/19 10:07 am Comments DCP- Discharge Planning Updated by [email or web address]: Jr Monteiro on 12/24/19 6:[address] Patient Name: KAYODE MORALES Encounter No: [id number] : 1960 Primary Insurance: [employer] INS EXCHANGE Anticipated DC Date: 12-22-2019 Planned Disposition: Outpatient PT\OT External Planned Provider: : DCP follow-up note: CM discussed HHS, OP Therapy, SNF, Rehab. Patient declined PT and DME. Patient voices no other needs at this time. CM will follow and assist PRN. Jr Monteiro DCP- Discharge Planning Updated by [email or web address]: Tia Kapadia on 12/22/19 2:[address] Patient Name: KAYODE MORALES Admission Status: ER Accout number: [id number] Admission Date: 12-19-2019 : 1960 Admission Diagnosis:FRACTURE OF UNSP PART OF NECK OF LEFT FEMUR, INIT Attending: YSABEL SONG Current LOS: 3 Anticipated DC Date: 12-22-2019 Planned Disposition: Outpatient PT\OT Primary Insurance: [employer] INS EXCHANGE Discharge Planning Comments: ORTHO ORDER FOR OUTPATIENT PT PLACED ON CHART AND SCANNED IN. CM TO FOLLOW AND ASSIST NEEDED. Water Filterer Helper: Tia Kapadia DCP- Discharge Planning Updated by [email or web address]: Elizabeth Siu on 12/20/19 4:[address] CM will need to set up OP Therapy with [facility], in [place] upon DC and also a walker will be needed prior to DC. CM met with patient for DC planning. Patient is in agreement to same. Patient lives with her daughter, Kerrie Kaminski ([phone]), in her home, in [place]. There are two steps entering the home. PCP: Agustina Emmanuel. Pharmacy: [facility]. DME: None. CM discussed HHS, OP Therapy, SNF, Rehab. [facility] [place], she has been a client of theirs in the past. Patient's daughter will drive her home upon DC. Patient voices no other needs at this time. CM will follow and assist PRN. DCPIA - Discharge Planning Initial Assessment Updated by [email or web address]: Elizabeth Siu on 12/20/19 6:11 pm * Is the patient Alert and Oriented? Yes * How many steps to enter\exit or inside your home? * PCP Kvng Emmanuel * Pharmacy [facility] * Preadmission Environment Home with Family * ADLs Independent * Equipment None * Other Equipment Will require a walker prior to DC. * List name and contact numbers for known caregivers / representatives who currently or will assist patient after discharge: Kerrie Kaminski (d-I-l) [phone] * Verbal permission to speak to the caregivers and representatives has been obtained from the patient. Yes * Community resources currently utilized None * Please name any agencies selected above. [facility] (OP) * Additional services required to return to the preadmission environment? Yes * Can the patient safely return to the preadmission environment? Yes * Has this patient been hospitalized within the prior 30 days at any hospital? No Coverage Notice Reviewer: [id number] - Elizabeth Siu Notice Issued Date-Time: 12/20/2019 18:46 Notice Type: Patient Choice Letter Notice Delivered To: Patient Relationship to Patient: Self Busgirl Name: Kayode Morales Delivery Method: HAND - Hand Delivered Izzy Days: Prior Verbal Notification: Recipient Understood Notice: Yes Recipient Signature: Yes Med Rec Note Co-signed by Attending: Coverage Notice Comment: Leilani Ledesma [place] Last DP export: 12/24/19 6:39 Patient Name: KEVIN MORALESNA Page [id number] at 0907 All edits/amendments must be made on the electronic document DICTATION DATE: 12/25/19906 CLAIMS ANALYST: STACIA 12/25/19906 RPT#: [id number] DC DATE:12/24/19 STATUS: DIS IN [facility] [address] [place] [address] END OF REPORT
== END 2019-12-24 13:00 | disposition home or self-care (01) | DRG 522 ==
LOC: D.ER 14:29 → D.M3 19:55 → D.MS 12-22 16:29
PROVIDERS: Emergency Medicine; Family Medicine; Orthopaedic Surgery; ADMIT Family Medicine; ATTEND Family Medicine
PROC: 0SRB0JA Replacement of Left Hip Joint with Synthetic Substitute, Uncemented, Open Approach (ICD-10-PCS; principal; 2019-12-19 18:30)
DX: S72.002A Fracture of unspecified part of neck of left femur, initial encounter for closed fracture (principal); D62 Acute posthemorrhagic anemia; X58.XXXA Exposure to other specified factors, initial encounter; F41.8 Other specified anxiety disorders